=== PATIENT | female | born 1965 | race Caucasian/White ===

== ENCOUNTER → 2019-04-11 12:10 | Outpatient (CLI) | payer OTHER, SELFPAY ==
--- NOTE | 2019-04-11 12:16 | DI.RAD.S_ITS ---
PROCEDURE: XR CERVICAL SPINE 4V OR 5V INDICATIONS: Neck pain TECHNIQUE: 5 views of the cervical spine acquired, including both obliques. COMPARISON: None. FINDINGS: Bones: No fractures or dislocations to the T1 level. Oblique images demonstrate no bony foraminal stenoses. Note is made of a mild to moderate degree of degenerative disc disease at C5-6 and mild such degeneration at C4-5 and C6-7. No subluxation is associated. Soft tissues: No prevertebral soft tissue swelling. IMPRESSION: Mild to moderate degenerative disc disease and facet osteoarthritis is present from C4-5 through C6-7, but without visualized evidence of acute injury or underlying spinal and foraminal stenosis. Dictated by: Robby Prater M.D. on 04/11/2019 at 12:50 Approved by: Robby Prater M.D. on 04/11/2019 at 12:52
== END ==
PROVIDERS: PCP Family Medicine; Visit Provider Physical Medicine & Rehabilitation
DX: M50.121 Cervical disc disorder at C4-C5 level with radiculopathy (principal); M47.22 Other spondylosis with radiculopathy, cervical region
CPT/HCPCS: 72050; 99214